=== PATIENT | male | born 1995 | race Hispanic/Latino ===

== ENCOUNTER 2016-12-21 19:53 | Emergency (ER) | payer OTHER ==
[~2016-12-21] VITALS: Ht 175.3 cm; Wt 139.4 kg
[2016-12-21 20:14] LABS: HEMATOCRIT 45.6 % (38.0-50.0); MCH 28.2 PG (29.0-34.0); MCHC 33.1 G/DL (30.0-36.0); MCV 85.1 FL (86-99); MEAN PLAT.VOLUME 9.7 uM^3 (9.0-12.4); PLATELET COUNT 396 K/uL (156-360); RBC DIS.WIDTH-CV 12.1 % (11.8-14.6); RED BLOOD COUNT 5.36 M/uL (4.00-5.50); WHITE BLOOD COUNT 9.7 K/uL (4.1-10.2)
[2016-12-21 20:25] LABS: CHLORIDE 109 mEq/L (99-109); POTASSIUM 4.1 mEq/L (3.7-5.4); SODIUM 140 mEq/L (136-147)
[2016-12-21 20:26] LABS: GLUCOSE 105 mg/dL (70-99)
[2016-12-21 20:28] LABS: ANION GAP 12 MEQ/L (2-14)
[2016-12-21 20:30] LABS: GFR ESTIMATE (CALCULATED) > 59 mL/min/
[2016-12-21 20:31] LABS: UREA NITROGEN (BUN) 9 mg/dL (9-23)
[2016-12-21 20:36] LABS: TROP-I INTERPRETATION NEGATIVE; TROPONIN-I < 0.01 ng/mL (0.0-0.30)
[2016-12-21 20:39] LABS: D-DIMER ELISA 0.24 mg/L FEU (< 0.57)
[2016-12-21 22:42] LABS: TROP-I INTERPRETATION NEGATIVE; TROPONIN-I < 0.01 ng/mL (0.0-0.30)
[2016-12-21] MEDS ORDERED: VENTOLIN HFA18 GM IH (23:07)
[2016-12-21] MEDS ORDERED: MOTRIN800 MG PO (23:07)
[2016-12-21] MEDS ORDERED: PROVENTIL,2.5 MG/3 M IH (23:07)
[2016-12-21] MEDS ORDERED: LORAZEPAM1 MG PO (23:08)
[2016-12-21 23:43] VITALS: BP 140/83
== END 2016-12-21 23:49 | disposition home or self-care (01) ==
LOC: EME 19:53
PROVIDERS: Physician Assistant
DX: R07.81 Pleurodynia (principal); M54.12 Radiculopathy, cervical region; J98.01 Acute bronchospasm; F41.9 Anxiety disorder, unspecified; F43.0 Acute stress reaction; R03.0 Elevated blood-pressure reading, without diagnosis of hypertension; F17.200 Nicotine dependence, unspecified, uncomplicated; J45.909 Unspecified asthma, uncomplicated
CPT/HCPCS: 71020; 80048; 84484; 85027; 85379; 93005; 94640; 99281; 99284

== ENCOUNTER 2018-03-31 20:20 | Emergency (ER) | payer OTHER ==
[~2018-03-31] VITALS: Ht 175.3 cm; Wt 135.3 kg
[~2018-03-31 20:20] MED LIST: LORAZEPAM1 MG PO; MOTRIN800 MG PO; PROVENTIL,2.5 MG/3 M IH; VENTOLIN HFA18 GM IH
[2018-03-31 21:07] LABS: BASOPHIL (%) 0.4 % (0-1); EOSINOPHIL (%) 3.7 % (0-5); EOSINOPHIL COUNT 0.4 K/uL (0-0.3); HEMATOCRIT 41.7 % (38.0-50.0); HEMOGLOBIN 14.1 G/DL (12.5-16.6); IMMATURE GRANULOCYTE (%) 0.2 % (0.0-0.7); LYMPHOCYTE COUNT 3.3 K/uL (1.0-2.8); MCH 28.8 PG (29.0-34.0); MCHC 33.8 G/DL (30.0-36.0); MCV 85.3 FL (86-99); MONOCYTE (%) 7.2 % (3-12); MONOCYTE COUNT 0.7 K/uL (0-0.8); NEUTROPHIL (%) 56.5 % (45-76); NEUTROPHIL COUNT 5.8 K/uL (1.8-6.4); PLATELET COUNT 294 K/uL (156-360); RBC DIS.WIDTH-CV 12.5 % (11.8-14.6); RBC DIS.WIDTH-SD 38.9 % (39-53); RED BLOOD COUNT 4.89 M/uL (4.00-5.50); WHITE BLOOD COUNT 10.3 K/uL (4.1-10.2)
[2018-03-31 21:12] LABS: CHLORIDE 105 mEq/L (99-109); POTASSIUM 3.5 mEq/L (3.7-5.4); SODIUM 140 mEq/L (136-147)
[2018-03-31 21:14] LABS: GLUCOSE 105 mg/dL (70-99)
[2018-03-31 21:17] LABS: CREATININE 0.9 mg/dL (0.6-1.3); GFR ESTIMATE (CALCULATED) > 59 mL/min/ (58.99-99999)
[2018-03-31 21:18] LABS: UREA NITROGEN (BUN) 14 mg/dL (9-23)
[2018-03-31 21:23] LABS: TROP-I INTERPRETATION NEGATIVE; TROPONIN-I < 0.01 ng/mL (0.0-0.30)
[2018-03-31] MEDS ORDERED: ATIVAN1 MG PO (21:32)
[2018-03-31] MEDS ORDERED: ALBUTEROL2.5 MG/3 M IH (21:34)
[2018-03-31 22:16] VITALS: BP 120/57
== END 2018-03-31 22:17 | disposition home or self-care (01) ==
LOC: EME 20:20
PROVIDERS: Emergency Medicine
DX: F41.9 Anxiety disorder, unspecified (principal); R00.2 Palpitations; R03.0 Elevated blood-pressure reading, without diagnosis of hypertension; J45.909 Unspecified asthma, uncomplicated
CPT/HCPCS: 80048; 84484; 85025; 93005; 99281; 99283